=== PATIENT | male | born 1945 | race Caucasian/White ===

== ENCOUNTER → 2020-02-17 | Outpatient (CLI) | payer MEDICARE ==
[~2020-02-17] MED LIST: HYDR-3240; HYDR12.547; LEVO25TA45; OMNIPAQUE 350 MG/ML, 100ML BOTTLE ONE; PANT40GR PO
[2020-02-17 16:56] LABS: ALANINE AMINOTRANSFERASE 26 U/L (12-78); ANION GAP 2 mmol/L (5-15); BASOPHILS % (AUTO) 1 % (0-1); CALCIUM 9.3 mg/dL (8.5-10.1); CHLORIDE 103 mmol/L (98-107); CREATININE 1.28 mg/dL (0.7-1.3); EOSINOPHILS % (AUTO) 5 % (1-7); LYMPHOCYTES % (AUTO) 33 % (22-44); MD NO; MEAN CORPUSCULAR HEMOGLOBIN 31.2 pg (27.5-34.5); MEAN CORPUSCULAR HGB CONC 34.5 g/dL (33.2-36.2); MEAN PLATELET VOLUME 8.3 fL (7.4-10.4); MONOCYTES % (AUTO) 8 % (2-9); NEUTROPHILS % (AUTO) 54 % (42-75); PLATELET COUNT 239 x10^3/uL (130-400); RED BLOOD COUNT 4.53 x10^6/uL (4.38-5.82); RED CELL DISTRIBUTION WIDTH 13.5 % (9.4-14.8)
[2020-02-17 16:58] LABS: ALKALINE PHOSPHATASE 82 U/L (45-117); BILIRUBIN,TOTAL 0.5 mg/dL (0.2-1.0); TOTAL PROTEIN 7.8 g/dL (6.4-8.2)
== END | disposition home or self-care (01) ==
LOC: RAD 16:03
PROVIDERS: ATTEND Internal Medicine
DX: K76.0 Fatty (change of) liver, not elsewhere classified (principal); N28.1 Cyst of kidney, acquired; N40.0 Benign prostatic hyperplasia without lower urinary tract symptoms; M51.36 Other intervertebral disc degeneration, lumbar region; M48.56XA Collapsed vertebra, not elsewhere classified, lumbar region, initial encounter for fracture; N13.1 Hydronephrosis with ureteral stricture, not elsewhere classified
CPT/HCPCS: 36415; 74177; 80053; 85025; Q9967